=== PATIENT | male | born 1980 | race Caucasian/White ===

== ENCOUNTER 2020-09-26 15:20 | Emergency (ER) | payer OTHER ==
[2020-09-26 15:25] VITALS: RESP 16; TEMP 98.1
[2020-09-26] MEDS ORDERED: LIDOCAINE 1% INJ 10MG/ML (20 ML MDV) SQ ONE (15:39)
[2020-09-26] MEDS ORDERED: DIPH,PERTUS(ACELL)TETVAC-LF 0.5 ML VIAL IM ONE (15:39)
--- NOTE | 2020-09-26 15:52 | ED ---
Animal Bite HPI - General Chief Complaint: Animal Bite Stated Complaint: dog bite Source: patient, RN notes reviewed, old records reviewed Mode of arrival: ambulatory Limitations: no limitations - History of Present Illness Initial Comments: 40-year-old white male, alert and oriented 4, presents to the emergency room with complaints of being bitten by a pitbull approximately one hour prior to arrival. 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 Patient does not know who the dog belongs to states that the dog ran off. Patient presents with a laceration to the right hypothenar palmar surface of hand. Patient states that the animal is unknown to him. Patient denies any medical history. He states that he is unsure of his tetanus status. MD Complaint: animal bite -: hour(s) (1) Location: other (Right hand) Animal: dog Description: unknown animal Mechanism: bite Pain Description: sharp Severity scale (1-10): 8 Associated Symptoms: none Treatments Prior to Arrival: wound dressing(s) - Related Data Patient Tetanus UTD: No Previous Rx's Medication Instructions Recorded Amoxicillin/Potassium Clav 1 tab PO Q12HR 10 Days #20 tab 09/26/20 [Augmentin 875-125 Tablet] Allergies Allergy/AdvReac Type Severity Reaction Status Date / Time No Known Allergies Allergy Verified 09/26/20 15:24 Review of Systems ROS Statement: Those systems with pertinent positive or pertinent negative responses have been documented in the HPI. ROS Other: All systems not noted in ROS Statement are negative. Past Medical History Past Medical History: No Reported History History of Any Multi-Drug Resistant Organisms: None Reported Past Surgical History: Orthopedic Surgery Past Psychological History: No Psychological Hx Reported Smoking Status: Vaper Past Alcohol Use History: Occasional Past Drug Use History: Marijuana General Exam Limitations: no limitations General appearance: alert, in no apparent distress Head exam: Present: atraumatic, normocephalic, normal inspection Eye exam: Present: normal appearance, PERRL, EOMI. Absent: scleral icterus, conjunctival injection, periorbital swelling Pupils: Present: normal accommodation ENT exam: Present: normal exam, normal oropharynx, mucous membranes moist Neck exam: Present: normal inspection, full ROM. Absent: tenderness, meningismus, lymphadenopathy, thyromegaly Respiratory exam: Present: normal lung sounds bilaterally. Absent: respiratory distress, wheezes, rales, rhonchi, stridor, chest wall tenderness, accessory muscle use Cardiovascular Exam: Present: regular rate, normal rhythm, normal heart sounds. Absent: systolic murmur, diastolic murmur, rubs, gallop, clicks GI/Abdominal exam: Present: soft, normal bowel sounds. Absent: distended, tenderness, guarding, rebound, rigid Extremities exam: Present: normal inspection (Healed scar from surgery left leg), full ROM, normal capillary refill. Absent: tenderness, pedal edema, joint swelling, calf tenderness Back exam: Present: normal inspection, full ROM. Absent: tenderness, CVA tenderness (R), CVA tenderness (L), muscle spasm, paraspinal tenderness, vertebral tenderness Neurological exam: Present: alert, oriented X3, CN II-XII intact Psychiatric exam: Present: normal affect, normal mood Skin exam: Present: warm, dry, intact, normal color, other (Laceration to the right hand from dog bite). Absent: rash, cyanosis, diaphoretic, erythema, p etechiae, pallor, mottled Course Vital Signs 09/26/20 15:22 Temperature 98.1 F Pulse Rate 74 Respiratory 16 Rate Blood Pressure 151/86 O2 Sat by Pulse 99 Oximetry Procedures - Laceration Laceration #1 Site: hand Description: linear Depth: simple, single layer Anesthetic Used: lidocaine 1% Anesthesia Technique: local infiltration Pre-repair: irrigated extensively Type of Sutures: nylon Size of Sutures: 4-0 Number of Sutures: 4 Technique: simple, interrupted Patient Tolerated Procedure: well, no complications Medical Decision Making - Medical Decision Making 4 sutures used to loosely close the laceration. Patient was prescribed Augmentin to take twice today for the next 10 days. Patient's tetanus shot was updated. X-ray was completed and is negative for fracture or foreign body. Patient was offered rabies prophylaxis and refused. He states that he does not want anything that potentially have any side effects. Discussed with length the risks and benefits of getting prophylaxis versus actually getting rabies. Patient states "I'm good " and doesn't want Prophylaxis. Patient directed to return to the emergency room with any signs of infection including fevers drainage or increased pain. Follow-up with his primary care doctor in 1 week sutures out in 7-10 days. Case discussed with Dr. Her Disposition Clinical Impression: Dog bite Disposition: HOME SELF-CARE Condition: Good Instructions (If sedation given, give patient instructions): Animal Bite (ED) Additional Instructions: Sutures out in 7-10 days, follow-up with the primary care doctor in 1 week. Take medication as prescribed for the next 10 days. Return if worsening symptoms or signs of infection including drainage, or fever. Prescriptions: Amoxicillin/Potassium Clav [Augmentin 875-125 Tablet] 1 tab PO Q12HR 10 Days #20 tab Is patient prescribed a controlled substance at d/c from ED?: No Referrals: None,Stated [Primary Care Provider] - 1-2 days Time of Disposition: 16:29
[2020-09-26] MEDS ORDERED: RABIES IMMUNE GLOB 300 UNIT/ML 1 ML VIAL IM ONE (15:54)
--- NOTE | 2020-09-26 16:21 | XR ---
EXAMINATION TYPE: XR hand complete RT DATE OF EXAM: 09/26/2020 COMPARISON: NONE HISTORY: Laceration TECHNIQUE: 3 views FINDINGS: I see no fracture nor dislocation. Joint spaces are normal. There are no erosions. There ar e no pathologic calcifications. IMPRESSION: Negative right hand exam. No fracture.
[2020-09-26] MEDS ORDERED: RABIES IMMUNE GLOB 300 UNIT/ML 5 ML VIAL IM ONE (16:30)
[2020-09-26] MEDS ORDERED: RABIES VACCINE (PCEC) 2.5 UNIT KIT IM ONE (16:30)
[2020-09-26 16:36] VITALS: BP 130/91; PULSE 67
== END 2020-09-26 16:36 | disposition home or self-care (01) ==
LOC: EC 15:20
DX: S61.411A Laceration without foreign body of right hand, initial encounter (principal); F17.290 Nicotine dependence, other tobacco product, uncomplicated; F12.90 Cannabis use, unspecified, uncomplicated; W54.0XXA Bitten by dog, initial encounter; Y99.0 Civilian activity done for income or pay
CPT/HCPCS: 73130; 90715; 90471; 12001; 99283; J2001

== ENCOUNTER 2020-09-30 14:38 | Emergency (ER) | payer OTHER ==
[2020-09-30 14:53] VITALS: BP 141/79; PULSE 68; RESP 16; TEMP 98.6
[2020-09-30] MEDS ORDERED: AMOXIC-POT CLAV 875-125MG 1 EACH TAB PO STA (14:56)
--- NOTE | 2020-09-30 15:46 | XR ---
EXAMINATION TYPE: XR hand complete RT DATE OF EXAM: 09/30/2020 CLINICAL HISTORY: pain TECHNIQUE: Frontal, lateral and oblique images of the right hand are obtained. COMPARISON: None. FINDINGS: There is no acute fracture/dislocation evident. The joint spaces appear within normal limi ts. The overlying soft tissue appears unremarkable. IMPRESSION: There is no acute fracture or dislocation ICD 10 NO FRACTURE, INITIAL EVALUATION
--- NOTE | 2020-09-30 16:28 | ED ---
Skin/Abscess/FB HPI - General Source: patient, RN notes reviewed Mode of arrival: ambulatory Limitations: no limitations <Adam Griffin - Last Filed: 09/30/20 16:16> <Celena Martinez - Last Filed: 10/01/20 01:11> - General Chief complaint: Skin/Abscess/Foreign Body Stated complaint: R hand injury Time Seen by Provider: 09/30/20 14:44 - History of Present Illness Initial comments: Patient is a 40-year-old male that presents to emergency department to get a reevaluation for a dog bite on the right palmar aspect of his hand. He notes that he was seen Monday got sutures and antibiotic. He noted that he was unable to fill the antibiotic because he kept forgetting and lost in the back seat of his car. Patient noted that one of the sutures pulled out and he was a very minimal green color/discharge from one end of the wound. Patient was informed that taking his antibiotics is imperative to proper healing and if further delay he could lose his hand potentially. She denied other issues or complaints at this time. (Adam Griffin) - Related Data Previous Rx's Medication Instructions Recorded Amoxicillin/Potassium Clav 1 tab PO Q12HR 10 Days #20 tab 09/26/20 [Augmentin 875-125 Tablet] Amoxicillin/Potassium Clav 1 tab PO Q12HR #20 tab 09/30/20 [Augmentin 875-125 Tablet] Allergies Allergy/AdvReac Type Severity Reaction Status Date / Time No Known Allergies Allergy Verified 09/26/20 15:24 Review of Systems ROS Other: All systems not noted in ROS Statement are negative. <Adam Griffin - Last Filed: 09/30/20 16:16> ROS Other: All systems not noted in ROS Statement are negative. <Celena Martinez - Last Filed: 10/01/20 01:11> ROS Statement: Those systems with pertinent positive or pertinent negative responses have been documented in the HPI. Past Medical History Past Medical History: No Reported History History of Any Multi-Drug Resistant Organisms: None Reported Past Surgical History: Orthopedic Surgery Past Psychological History: No Psychological Hx Reported Smoking Status: Vaper Past Alcohol Use History: Occasional Past Drug Use History: None Reported, Marijuana <Adam Griffin - Last Filed: 09/30/20 16:16> General Exam Limitations: no limitations General appearance: alert, in no apparent distress Head exam: Present: atraumatic, normocephalic, normal inspection Eye exam: Present: normal appearance, PERRL, EOMI. Absent: scleral icterus, conjunctival injection, periorbital swelling Neck exam: Present: normal inspection Respiratory exam: Present: normal lung sounds bilaterally. Absent: respiratory distress, wheezes, rales, rhonchi, stridor Cardiovascular Exam: Present: regular rate, normal rhythm, normal heart sounds. Absent: systolic murmur, diastolic murmur, rubs, gallop, clicks Extremities exam: Present: normal inspection, full ROM, normal capillary refill. Absent: tenderness, pedal edema, joint swelling, calf tenderness Right Hand Wrist exam: Present: normal inspection, full ROM, other (One suture torn, proximal aspect of bite wound minimal green discharge.). Absent: tenderness, swelling Neurological exam: Present: alert, oriented X3 Psychiatric exam: Present: normal affect, normal mood Skin exam: Present: warm, dry, intact, normal color. Absent: rash <Adam Griffin - Last Filed: 09/30/20 16:16> Course Vital Signs 09/30/20 14:49 Temperature 98.6 F Pulse Rate 68 Respiratory 16 Rate Blood Pressure 141/79 O2 Sat by Pulse 98 Oximetry Medical Decision Making <Adam Griffin - Last Filed: 09/30/20 16:16> <Celena Martinez - Last Filed: 10/01/20 01:11> - Medical Decision Making 40-year-old male here for reevaluation for dog bite to right hand stating he did not take his antibiotic or fillet. X-ray of the right hand ordered. X-ray right hand negative for any acute osseous abnormalities. 1 tablet double strength Augmentin ordered in the emergency Department in a new prescription was sent to pharmacy. Case discussed with Dr. Martinez, patient can discharge home with antibiotics. (Adam Griffin) I was available for consultation in the emergency department. The history and physical exam were done by the midlevel provider. I was consulted for this patients care. I reviewed the case with the midlevel provider and based on their presentation of the patient, I agree with the assessment, medical decision making and plan of care as documented. I then evaluated the patient myself. No pustular drainage, lymphatic streaking or concerning signs for tenosynovitis. Patient instructed he must obtain and take his antibiotics. We are sending them to the pharmacy as he has lost his script. he needs to return to the ED should he have increasing redness, swelling or pustular drainage. Patient agreed and was discharged home in stable condition. Chart was dictated using [employer] dictation software. Attempts were made to correct any dictation errors however some typographical errors may persist. (Celena Martinez) Disposition Is patient prescribed a controlled substance at d/c from ED?: No Time of Disposition: 16:29 <Adam Griffin - Last Filed: 09/30/20 16:16> <Celena Martinez - Last Filed: 10/01/20 01:11> Clinical Impression: Dog bite Disposition: HOME SELF-CARE Condition: Stable Instructions (If sedation given, give patient instructions): Animal Bite (ED) Additional Instructions: Please return to the Emergency Department if symptoms worsen or any other concerns. Take antibiotics as prescribed until complete. Follow-up with primary care as needed. Prescriptions: Amoxicillin/Potassium Clav [Augmentin 875-125 Tablet] 1 tab PO Q12HR #20 tab Referrals: None,Stated [Primary Care Provider] - 1-2 days
== END 2020-09-30 16:42 | disposition home or self-care (01) ==
LOC: EC 14:38
DX: S61.451D Open bite of right hand, subsequent encounter (principal); F17.290 Nicotine dependence, other tobacco product, uncomplicated; W54.0XXD Bitten by dog, subsequent encounter
CPT/HCPCS: 99283